=== PATIENT | male | born 1985 | race Caucasian/White ===

== ENCOUNTER 2020-02-01 18:01 | Emergency (ER) | payer MEDICARE, MEDICAID, SELFPAY ==
--- NOTE | ~2020-02-01 | XR_ITS ---
EXAMINATION: XR lumbar spine 2-3V DATE: 02/01/2020 18:35 INDICATION: Low back pain TECHNIQUE: Anteroposterior and lateral views of the lumbar spine, and cone-down lateral view of the l umbosacral junction were obtained. COMPARISON: CT, 03/21/2019 FINDINGS: There are changes of posterior thoracolumbar fusion. There is thoracolumbar levoscoliosis. No fracture is identified. Bone alignment is normal. There is chronic loss of intervertebral disc spa ce height throughout the lumbar spine. The vertebral body heights are normal. Cholecystectomy clips a re present in the right upper quadrant. A left upper quadrant suture line is consistent with gastric bypass. IMPRESSION: 1. No acute osseous abnormality. Reviewed, dictated and finalized at location A.
[2020-02-01 18:01] VITALS: BP 164/88; PULSE 66; RESP 18; TEMP 36.7; O2SAT 100
[2020-02-01] MEDS: ACETAMINOPHEN 325 MG TABLET 650 MG PO (18:22)
[2020-02-01] MEDS: DIAZEPAM 5 MG TABLET PO (18:23)
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
[2020-02-01 18:59] VITALS: BP 159/99; PULSE 62; RESP 20; O2SAT 100
== END 2020-02-01 19:00 | disposition home or self-care (01) ==
PROVIDERS: Emergency Provider Emergency Medicine; PCP Internal Medicine
DX: S39.92XA Unspecified injury of lower back, initial encounter (principal); E66.9 Obesity, unspecified; Z68.39 Body mass index [BMI] 39.0-39.9, adult; V49.50XA Passenger injured in collision with unspecified motor vehicles in traffic accident, initial encounter
CPT/HCPCS: 72100; 99283; A9270